=== PATIENT | female | born 1950 | race Caucasian/White ===

== ENCOUNTER → 2016-04-26 | Outpatient (CLI) | payer OTHER ==
--- NOTE | 2016-04-26 13:17 | MA ---
Screening Digital Mammogram With iCAD Analysis Clinical Indications: Routine screening. The patient has had right breast cancer treated with lumpect august. Her mother was diagnosed with breast cancer in her 80s. Technique: Standard cephalocaudal and mediolateral oblique projections were obtained. This examinatio n was processed by the iCAD computer-aided detection system. Comparison: March 2015, March 2014, May 2013, March 2013, March 2012, March 2011, Buddy2010, February 2009. Breast Density: Type B; Scattered fibroglandular densities. Findings: CAD was reviewed. Asymmetry at the right breast lumpectomy site is stable. No masses, susp icious calcifications, or other signs of malignancy are identified. There has been no significant ch jamel in the appearance of either breast. Impression: Benign post lumpectomy mammography, BI-RADS 2. Recommendation: Routine mammographic screening in one year as long as physical examination is negativ [facility] will send a result letter to the patient. Negative mammography should not preclude additional workup of a clinically suspicious finding. The patient's information is entered into a reminder system with a target due date for her next mammo gram.
== END ==
LOC: BMCIMAGING 09:22
DX: Z12.31 Encounter for screening mammogram for malignant neoplasm of breast (principal); Z85.3 Personal history of malignant neoplasm of breast; Z80.3 Family history of malignant neoplasm of breast
CPT/HCPCS: G0202

== ENCOUNTER → 2017-04-28 | Outpatient (CLI) | payer OTHER, BC | LOC: BMCIMAGING 13:23 | PROVIDERS: ATTEND Physician Assistant Medical | DX: Z12.31 Encounter for screening mammogram for malignant neoplasm of breast (principal); Z85.3 Personal history of malignant neoplasm of breast ==

== ENCOUNTER → 2017-05-15 | Outpatient (CLI) | payer OTHER | LOC: FIMAGING 08:51 | PROVIDERS: ATTEND Physician Assistant Medical | DX: Z13.820 Encounter for screening for osteoporosis (principal); Z85.3 Personal history of malignant neoplasm of breast ==

== ENCOUNTER → 2018-05-13 | Outpatient (CLI) | payer OTHER | LOC: BMCIMAGING 14:19 | PROVIDERS: ATTEND Internal Medicine Hematology & Oncology | DX: Z12.31 Encounter for screening mammogram for malignant neoplasm of breast (principal); Z80.3 Family history of malignant neoplasm of breast ==

== ENCOUNTER 2018-08-23 21:34 | Observation (INO) | payer OTHER ==
--- NOTE | 2018-08-23 22:08 | EDPHY ---
H & P Stated Complaint: R arm enlarged, warm to touch, hx lymphedmea x2 yrs ago Time Seen by Provider: 08/23/18 22:07 HPI/ROS: HPI CHIEF COMPLAINT: Right upper extremity swelling, redness, warmth. HISTORY OF PRESENT ILLNESS: Patient very pleasant 68-year-old female she has a history of breast cancer, she status post lumpectomy on the right side, additionally cezar dissection, she has chronic right upper extremity lymphedema. She presents emergency room tonight right upper extremity increasing pain swelling and redness. She notices around 830 tonight. Was rather sudden onset. She realized that her arm was more swollen than normal and warm. She denies any trauma. She does report that she was gardening today , but does not remember any injury to her right arm. Past Medical History: Significant medical history for breast cancer. Past Surgical History: Lumpectomy. Cezar dissection. Social History: Denies drugs alcohol tobacco. Family History: Noncontributory ROS REVIEW OF SYSTEMS: 10 Systems were reviewed and negative with the exception of the elements mentioned in the history of present illness. Exam Constitutional triage nursing summary reviewed, vital signs reviewed, awake/ alert. Eyes normal conjunctivae and sclera, EOMI, PERRLA. HENT normal inspection, atraumatic, moist mucus membranes, no epistaxis, neck supple/ no meningismus, no raccoon eyes. Respiratory clear to auscultation bilaterally, normal breath sounds, no respiratory distress, no wheezing. Cardiovascular rate normal, regular rhythm, no murmur, no edema, distal pulses normal. Gastrointestinal soft, non-tender, no rebound, no guarding, normal bowel sounds, no distension, no pulsatile mass. Genitourinary no CVA tenderness. Musculoskeletal right upper extremity edematous, red, warm, and mildly tender palpation throughout. No focal area of cellulitis but the arm is red. no midline vertebral tenderness, full range of motion, no calf swelling, no tenderness of extremities, no meningismus, good pulses, neurovascularly intact. Skin pink, warm, & dry, no rash, skin atraumatic. Neurologic awake, alert and oriented x 3, AAOx3, moves all 4 extremities equally, motor intact, sensory intact, CN II-XII intact, normal cerebellar, normal vision, normal speech. Psychiatric normal mood/affect. Heme/Lymph/Immune no lymphadenopathy. Differential Diagnosis: Includes but is not limited to in a particular order cellulitis, acute on chronic lymphedema, DVT. Medical Decision Making: Plan for this patient IV establishment blood cultures , basic labs, inflammatory markers, Doppler ultrasound right upper extremity. Re-evaluate. Re-evaluation: Ultrasound right upper extremity shows no evidence of DVT. Called to me by Dr. Rogers. Plan for admission for right upper extremity cellulitis. Patient be admitted for right upper extremity cellulitis. Patient agrees for admission I have consult the hospitalist service Dr. Norman Agrees to admit. Source: Patient - Personal History Current Tetanus Diphtheria and Acellular Pertussis (TDAP): Yes - Medical/Surgical History Hx Asthma: No Hx Chronic Respiratory Disease: No Hx Diabetes: No Hx Cardiac Disease: No Hx Renal Disease: No Hx Cirrhosis: No Hx Alcoholism: No Hx HIV/AIDS: No Hx Splenectomy or Spleen Trauma: No Other PMH: Breast Ca w/lymphedema - Social History Smoking Status: Never smoked Constitutional: Initial Vital Signs Temperature (C) 36.9 C 08/23/18 21:38 Heart Rate 92 08/23/18 21:38 Respiratory Rate 17 08/23/18 21:38 Blood Pressure 134/77 H 08/23/18 21:38 O2 Sat (%) 97 08/23/18 21:38 O2 Delivery Mode Room Air Allergies/Adverse Reactions: No Known Allergies Allergy (Unverified 08/23/18 21:41) Home Medications: Medication Instructions Recorded Anastrozole [Arimidex 1 mg (*)] 1 mg PO HS 08/24/18 Aspirin EC [Aspirin EC 81 mg (*)] 81 mg PO DAILY 08/24/18 Calcium Carb W/Vit D [Calcium Carb 500 mg PO DAILY 08/24/18 W/Vit D 500/200 (*)] Ergocalciferol [Vitamin D2 (*)] 50,000 unit PO ISAAC@09 08/24/18 Multivitamins [Multivitamin (*)] 1 each PO DAILY 08/24/18 Simvastatin 10 mg PO HS 08/24/18 Medical Decision Making - Data Points Laboratory Results: Laboratory Results 08/23/18 22:47 08/23/18 22:47 Medications Given: Acetaminophen (Tylenol) 650 mg PO Q4HRS PRN PRN Reason: Pain, Mild/Fever, Can Take PO Stop: 02/20/19 02:12 Last Admin: 05/27/19 05:21 Dose: 650 mg Anastrozole (Arimidex) 1 mg PO HS [facility] Stop: 02/20/19 20:59 Last Admin: 08/24/18 21:36 Dose: 1 mg Enoxaparin Sodium (Lovenox) 40 mg SC DAILY [facility] Stop: 02/20/19 08:59 Last Admin: 08/24/18 08:27 Dose: 40 mg Cefazolin Sodium/Dextrose (Ancef 1 Gm (Premix)) 50 mls @ 200 mls/hr IV Q8HRS GERARDO PRN Reason: Protocol Stop: 09/23/18 07:59 Last Admin: 08/25/18 05:31 Dose: 50 mls Miscellaneous Medication (Non-Formulary) 1 ea PO HS [facility] Stop: 02/20/19 20:59 Last Admin: 08/24/18 21:36 Dose: 1 tab Discontinued Medications Cefazolin Sodium/Dextrose (Ancef) 100 mls @ 200 mls/hr IV EDNOW ONE PRN Reason: Protocol Stop: 08/23/18 23:30 Last Admin: 08/23/18 23:15 Dose: 100 mls Departure - Departure Disposition: [facility] Acute Clinical Impression: Cellulitis Qualifiers: Site of cellulitis: other site Qualified Code(s): L03.818 - Cellulitis of other sites Condition: Fair
[2018-08-23 23:00] LABS: PLATELET COUNT 274 10^3/uL (150-400)
[2018-08-23] MEDS ORDERED: ceFAZolin 2 GM/DEXTROSE 100 ML IV ONE (23:01)
[2018-08-24] MEDS ORDERED: ACETAMINOPHEN 325 MG TAB PO PRN (02:13)
[2018-08-24] MEDS ORDERED: HYDROCODONE/APAP 5/325 TAB PO PRN (02:13)
[2018-08-24] MEDS ORDERED: ONDANSETRON DISINTEGRATING 4 MG TAB PO PRN (02:13)
[2018-08-24] MEDS ORDERED: ONDANSETRON 4 MG/2 ML VIAL IVP PRN (02:13)
[2018-08-24] MEDS ORDERED: LORazepam 0.5 MG TAB PO PRN (02:13)
[2018-08-24 05:35] LABS: PLATELET COUNT 272 10^3/uL (150-400)
--- NOTE | 2018-08-24 08:21 | PDGENHP ---
History and Physical - Chief Complaint right arm swelling, redness, lymphedema - History of Present Illness Source - patient provides history appears reliable. EMR was reviewed and case discussed with ED provider. HPI - this a very pleasant 68-year-old female with past medical history significant for breast cancer in remission status post lumpectomy with lymph node dissection, chemotherapy presents emergency department this morning with complaints of increasing warm swelling and tightness in her right arm. Patient has a history of lymphedema in her right arm. She reports that she was gardening earlier in the day. She denies any known trauma or injury or skin puncture. Patient reports that she was hameed getting ready for bed and noticed that she felt like her right arm was feeling very tight. She has no significant increase in pain. She also noticed that the right arm was quite warm particularly under the covers. Patient denies any numbness or tingling. No fevers or chills. She otherwise has been feeling well. Patient is a remote history of cellulitis in this right upper extremity. History Information - Allergies/Home Medication List Allergies/Adverse Reactions: No Known Allergies Allergy (Unverified 08/23/18 21:41) Home Medications: Anastrozole [Arimidex 1 mg (*)] 1 mg PO DAILY 08/24/18 [Last Taken Unknown] Simvastatin 10 mg PO HS 08/24/18 [Last Taken Unknown] I have personally reviewed and updated: family history, medical history, social history, surgical history - Past Medical History Additional medical history: Breast cancer status post lumpectomy, lymph node dissection and chemotherapy. HLD - Surgical History Additional surgical history: Right breast lumpectomy and lymph node dissection. skin cancer removed (squamous cell) - Social History Smoking Status: Never smoked Alcohol Use: Occasionally (3 times weekly 1 glass wine) Drug Use: None Additional social history: Patient is lives with her . Cor status-full. Patient is not on life support to extend past 1 week. Review of Systems Review of Systems: ROS: 10pt was reviewed & negative except for what was stated in HPI & below Constitutional: Denies: chills, fever Physical Exam Physical Exam: Selected Entries 08/23/18 21:38 Blood Pressure Automatic Method Heart Rate 92 Respiratory 17 Rate O2 Sat (%) 97 Temperature (C) 36.9 C Blood Pressure 134/77 H Mean Arterial 96 Pressure (MAP) O2 Delivery Room Air Mode Temperature Axillary Source Temp Pulse Resp BP Pulse Ox 36.8 C 73 16 112/82 H 97 08/24/18 04:00 08/24/18 04:00 08/24/18 04:00 08/24/18 04:00 08/24/18 04:00 Constitutional: no apparent distress, other (NAD. Pleasant adult female is sitting up in bed. Patient good spirits.) Eyes: PERRL, anicteric sclera, EOMI, No scleral injection Ears, Nose, Mouth, Throat: moist mucous membranes, other (No nasal discharge.), No poor dentition Cardiovascular: regular rate and rhythym, no murmur, rub, or gallop, pulses symmetric bilaterally, No edema Peripheral Pulses: 2+: dorsalis-pedis (R), dorsalis-pedis (L) Respiratory: no respiratory distress, no rales or rhonchi, clear to auscultation Gastrointestinal: normoactive bowel sounds, soft, non-tender abdomen, No distension Skin: warm, no fluctuance, erythema (Left forearm and upper arm with increased warmth. Erythema extending from proximal wrist up to the proximal upper arm. Faint erythema is receding from the initial jose line. Patient still has increased warmth) Musculoskeletal: full muscle strength Neurologic: AAOx3, sensation intact bilaterally, other (Grossly nonfocal.), No facial droop Psychiatric: interacting appropriately, not anxious, not encephalopathic, thought process linear Lymph, Heme, Immunologic: No lymphangitic streaking Lab Data & Imaging Review 08/24/18 04:25 08/24/18 04:25 WBC 13.05 10^3/uL (3.80-9.50) H 08/24/18 04:25 RBC 4.45 10^6/uL (4.18-5.33) 08/24/18 04:25 Hgb 14.3 g/dL (12.6-16.3) 08/24/18 04:25 Hct 43.0 % (38.0-47.0) 08/24/18 04:25 MCV 96.6 fL (81.5-99.8) 08/24/18 04:25 MCH 32.1 pg (27.9-34.1) 08/24/18 04:25 MCHC 33.3 g/dL (32.4-36.7) 08/24/18 04:25 RDW 13.0 % (11.5-15.2) 08/24/18 04:25 Plt Count 272 10^3/uL (150-400) 08/24/18 04:25 MPV 10.7 fL (8.7-11.7) 08/24/18 04:25 Neut % (Auto) 88.9 % (39.3-74.2) H 08/24/18 04:25 Lymph % (Auto) 6.4 % (15.0-45.0) L 08/24/18 04:25 Dade % (Auto) 3.8 % (4.5-13.0) L 08/24/18 04:25 Eos % (Auto) 0.1 % (0.6-7.6) L 08/24/18 04:25 Baso % (Auto) 0.3 % (0.3-1.7) 08/24/18 04:25 Nucleat RBC Rel Count 0.0 % (0.0-0.2) 08/24/18 04:25 Absolute Neuts (auto) 11.59 10^3/uL (1.70-6.50) H 08/24/18 04:25 Absolute Lymphs (auto) 0.84 10^3/uL (1.00-3.00) L 08/24/18 04:25 Absolute Monos (auto) 0.50 10^3/uL (0.30-0.80) 08/24/18 04:25 Absolute Eos (auto) 0.01 10^3/uL (0.03-0.40) L 08/24/18 04:25 Absolute Basos (auto) 0.04 10^3/uL (0.02-0.10) 08/24/18 04:25 Absolute Nucleated RBC 0.00 10^3/uL (0-0.01) 08/24/18 04:25 Immature Gran % 0.5 % (0.0-1.1) 08/24/18 04:25 Immature Gran # 0.07 10^3/uL (0.00-0.10) 08/24/18 04:25 ESR 7 MM/HR (0-30) 08/23/18 22:47 VBG Lactic Acid 1.4 mmol/L (0.7-2.1) 08/23/18 22:47 Sodium 136 mEq/L (135-145) 08/24/18 04:25 Potassium 3.9 mEq/L (3.5-5.2) 08/24/18 04:25 Chloride 102 mEq/L (97-110) 08/24/18 04:25 Carbon Dioxide 23 mEq/l (22-31) 08/24/18 04:25 Anion Gap 11 mEq/L (6-14) 08/24/18 04:25 BUN 18 mg/dL (7-23) 08/24/18 04:25 Creatinine 0.6 mg/dL (0.6-1.0) 08/24/18 04:25 Estimated GFR > 60 08/24/18 04:25 Glucose 118 mg/dL (70-100) H 08/24/18 04:25 Calcium 9.4 mg/dL (8.5-10.4) 08/24/18 04:25 C-Reactive Protein 14.2 mg/L (<10.0) H 08/23/18 22:47 Imaging Review: Right Upper Extremity Venous Ultrasound History: Right arm pain and swelling. Technique: The right upper extremity venous system as well as right neck veins were interrogated with grayscale, color, and spectral Duplex Doppler imaging. Venous ultrasound demonstrates normal appearance of the internal jugular vein and subclavian vein with normal color-flow Doppler pattern. The axillary, basilic, brachial, radial , and ulnar veins are normal in appearance without intraluminal thrombus with normal compression and normal color- flow Doppler appearance. The cephalic vein is also normal in appearance. Impression: No evidence of intraluminal thrombus venous system right upper extremity. Findings discussed with Dontae Ngo MD at 22:50 hour, 08/23/2018. Dictated By: Richard Rogers MD Assessment & Plan Assessment: this a very pleasant 68-year-old female with past medical history significant for breast cancer in remission status post lumpectomy with lymph node dissection , chemotherapy presents emergency department this morning with complaints of increasing warm swelling and tightness in her right arm. #Cellulitis right upper extremity - no evidence of injury or abrasion. continue iv ancef given aggressiveness/progression of cellulitis. pt showing improvement in cellulitis. #Right arm lymphedema - hold on compression wraps until cellulitis resolved. discussed with patient recommendations. #History of breast cancer - continue Arimidex #HLD - resume statin. offerred formulary but patient will see if can bring from home. FEN - SLIV. Electrolyte are adequate. Regular diet as tolerated. PPX-SCDs. Hold anticoagulation anticipating short hospital stay. Encourage mobilization. Cor status-full. Life support not to extend past 1 week. Patient reports she has advanced directives recent change in well will have her bring copy. Disposition-patient admitted observation status on the [facility] floor for continued need of IV antibiotics. Patient showing improvement in cellulitis and hopefully can be discharged tomorrow on oral antibiotics.
[2018-08-24] MEDS: ENOXAPARIN 40 MG/0.4 ML SYR SC SCH (08:27)
--- NOTE | 2018-08-24 10:27 | ASMTCMCOM ---
CM Note CM Note Notes: Reviewed chart, pt admitted for arm swelling. She has a hx of breast ca and lymphedema. Pt will transition to po abx and likely dc home with support of . CM available for any changes. DC Plan: Independent Date Signed: 08/24/2018 10:26 AM Electronically Signed By:Elvira Garner RN
--- NOTE | 2018-08-24 13:14 | HOSPPROG ---
Hospitalist Progress Note Assessment/Plan: 68-year-old female with past medical history significant for breast cancer in remission status post lumpectomy with lymph node dissection, chemotherapy presents emergency department this morning with complaints of increasing warm swelling and tightness in her right arm. #Cellulitis right upper extremity -no evidence of injury or abrasion. continue iv ancef given aggressiveness/progression of cellulitis. #Right arm lymphedema - hold on compression wraps until cellulitis resolved. #History of breast cancer - continue Arimidex #HLD - resume statin. FEN - SLIV. Electrolyte are adequate. Regular diet as tolerated. PPX-SCDs. Hold anticoagulation anticipating short hospital stay. Encourage mobilization. Cor status-full. Life support not to extend past 1 week. Patient reports she has advanced directives recent change in well will have her bring copy. Disposition- patient admitted observation status needs IV antibiotics Patient showing improvement in cellulitis hopefully can be discharged tomorrow on oral antibiotics. Subjective: Feeling better. Arm still red and swollen. Objective: Vital Signs Temp Pulse Resp BP Pulse Ox 36.9 C 72 16 119/69 95 08/24/18 11:11 08/24/18 11:11 08/24/18 11:11 08/24/18 11:11 08/24/18 11:11 Laboratory Results 08/24/18 04:25 08/24/18 04:25 08/23/18 08/24/18 08/25/18 05:59 05:59 05:59 Intake Total 160 Output Total 350 Balance 160 -350 - Physical Exam Constitutional: no apparent distress, appears nourished Eyes: PERRL, anicteric sclera Ears, Nose, Mouth, Throat: moist mucous membranes, hearing normal Cardiovascular: regular rate and rhythym, No JVD Respiratory: no respiratory distress, no rales or rhonchi Gastrointestinal: No tenderness, No ascites Skin: warm, erythema Musculoskeletal: no muscle tenderness, generalized weakness Neurologic: AAOx3 Psychiatric: interacting appropriately, not anxious ICD10 Worksheet Patient Problems: Problems Problem Status Onset Cellulitis Acute
[2018-08-24] MEDS: SIMVASTATIN 10 MG PO SCH (21:36)
[2018-08-24] MEDS: ANASTROZOLE 1 MG TAB PO SCH (21:36)
--- NOTE | 2018-08-25 08:26 | HOSPPROG ---
Hospitalist Progress Note Assessment/Plan: Patient is a 68-year-old female with a history of breast cancer in remission. She is status post lumpectomy and lymph node resection. She presented to the emergency room with complaints of increased warmth and swelling in her right arm. 1st encounter chart reviewed * right upper extremity cellulitis -Cefazolin -ultrasound shows no DVT * right arm lymphedema -chronic * history of breast cancer -on Arimidex * hyperlipidemia -statin *plan: will ask ID to get involved w her care. She will need close f/u in the OP setting. Subjective: Macario has no complaints, says she is feeling better since being admitted. Objective: Vital Signs Temp Pulse Resp BP Pulse Ox 36.6 C 76 18 113/81 H 94 08/25/18 07:25 08/25/18 07:25 08/25/18 07:25 08/25/18 07:25 08/25/18 07:25 Laboratory Results 08/24/18 04:25 08/24/18 04:25 08/24/18 08/25/18 08/26/18 05:59 05:59 05:59 Intake Total 160 Output Total 350 Balance 160 -350 - Physical Exam Constitutional: no apparent distress, appears nourished, not in pain Eyes: PERRL Ears, Nose, Mouth, Throat: hearing normal Cardiovascular: regular rate and rhythym Respiratory: no respiratory distress Skin: warm, other (right forearm and upper arm area w eythema, swelling) Musculoskeletal: full muscle strength Neurologic: AAOx3 Psychiatric: interacting appropriately ICD10 Worksheet Patient Problems: Problems Problem Status Onset Cellulitis Acute
[2018-08-25] MEDS: ENOXAPARIN 40 MG/0.4 ML SYR SC SCH (08:54)
[2018-08-25] MEDS: MULTIVITAMINS 1 EACH TAB PO SCH (08:56)
[2018-08-25] MEDS: CALCIUM CARB W/VIT D 500 MG TAB PO SCH (08:56)
[2018-08-25] MEDS: ASPIRIN EC 81 MG TAB PO SCH (08:56)
--- NOTE | 2018-08-25 18:26 | GCON ---
[f rep st] CONSULTATION DATE OF CONSULTATION: 08/25/2018 REFERRING PHYSICIAN: Geramine Beaver NP REASON FOR CONSULTATION: Recurrent right upper extremity cellulitis. HISTORY OF PRESENT ILLNESS: The patient is a 68-year-old female with a past medical history of breas t cancer, status post lumpectomy, lymph node dissection, radiation therapy and chemotherapy several y ears ago, I am asked to see in consultation for right upper extremity cellulitis. The patient has ly mphedema post lymph node dissection and experienced 1 previous episode of cellulitis approximately 2 years ago. This was successfully resolved with oral antibiotic therapy. The patient now notes that she had onset of right upper extremity edema, warmth and tenderness after spending the day gardening. She did not have associated fever or chills. She describes her arm as feeling tight. She does use a lymphedema sleeve both at nighttime and during daytime hours. Given the progressive right upper e xtremity symptoms, she was seen in the emergency department on 08/23/2018, with clinical findings of right upper extremity cellulitis. Upper extremity Doppler was performed and showed no evidence of DV T. She has not felt ill otherwise. She also was noted to have a mild leukocytosis at time of presen tation. Based on her clinical findings, she was started on cefazolin for recurrent right upper extre mity cellulitis in the setting of lymphedema. The patient feels like she has improved with less tigh tness and pain, but the erythema has not receded. Given the above findings, I am now asked to assist in her ongoing management. The patient does not recall any distinct injuries while gardening prior to onset of symptoms. She does wear gloves. PAST MEDICAL HISTORY: Breast cancer as outlined above, upper extremity cellulitis 2 years previously . PAST SURGICAL HISTORY: Lumpectomy and lymph node dissection. CURRENT MEDICATIONS: Cefazolin 1 g IV q.8 hours, Arimidex 1 mg p.o. q.h.s., aspirin 81 mg p.o. daily , calcium with vitamin D 500 mg p.o. daily, Lovenox 40 mg subcutaneous daily, vitamin D2 50,000 units p.o. weekly, multivitamin p.o. daily. ALLERGIES: No known drug allergies. SOCIAL HISTORY: Patient does not smoke. She drinks 1-2 glasses of wine daily. No unusual animal ex posure. She traveled to [facility] in June. FAMILY HISTORY: Breast cancer. REVIEW OF SYSTEMS: Outside that noted in the HPI, the remainder of a 10-system review is unremarkabl e. PHYSICAL EXAMINATION: VITAL SIGNS: Temperature 36.7, heart rate 70, respiratory rate 16, blood pres sure 122/79, oxygen saturation 93% on room air. GENERAL: The patient is well nourished, well develo ped, in no acute distress. She appears nontoxic. HEENT: There is no scleral icterus, conjunctival injection, or conjunctival petechiae. Oropharynx shows moist mucous membranes. No thrush present. Dentition in good repair. No nasal discharge or sinus tenderness. NECK: Supple without palpable ly mphadenopathy or thyromegaly. CHEST: Clear to auscultation bilaterally without adventitious sounds. Respiratory effort is normal. CARDIOVASCULAR: Regular rate and rhythm without murmurs, gallops, o r rubs. ABDOMEN: Soft, nontender and nondistended. There is no palpable organomegaly. Bowel sound s are present. MUSCULOSKELETAL: The right upper extremity shows erythema over the forearm extending to the upper arm, but not involving the hand, chest wall, or shoulder. Some of the areas are somewh at splotchy in quality. There is warmth with mild tenderness present. No bullae. No areas of crepi tus or fluctuance. LYMPHATICS: No cervical or supraclavicular nodes. No epitrochlear nodes in the right upper extremity. No lymphangitis in the right upper extremity. NEUROLOGIC: The patient is al ert and interacts appropriately with the examiner. Cranial nerves 2-12 are grossly intact. Sensatio n is grossly intact. Muscle tone and bulk are normal. SKIN: See musculoskeletal exam. No stigmata of endocarditis. Skin is warm and dry to touch. LABORATORY DATA: White blood cell count 13.1, hematocrit 43.0, platelets 272, neutrophils 89%. Seru m creatinine is 0.6, CRP 14.2. Blood cultures x2 sets are no growth to date. Ultrasound of the righ t upper extremity shows no evidence of DVT. IMPRESSION: Recurrent right upper extremity cellulitis with underlying lymphedema: Most likely, thi s will be due to beta-hemolytic streptococci, which is a common cause of cellulitis in the setting of lymphedema. MSSA would also be of consideration. No clinical findings to suggest MRSA. Given the underlying lymphedema and prior episode of cellulitis, she will continue to be at risk of recurrent e pisodes of cellulitis. I have discussed with her today option of having antibiotic therapy available at home for self-initiation of therapy with onset of symptoms versus consideration of suppressive an tibiotics if continues to experience recurrence. RECOMMENDATIONS: 1. Agree with cefazolin 1 g IV q.8 hours. 2. Elevate right upper extremity as feasible. 3. Continue discussions with patient of about self-initiation of therapy with onset of symptoms vers us suppressive antibiotics in the future with goal of preventing recurrent cellulitis. 4. Clinical findings, pathophysiology and plan of care reviewed with patient and today. /[id number]/MODL
[2018-08-25] MEDS: ANASTROZOLE 1 MG TAB PO SCH (21:03)
[2018-08-25] MEDS: SIMVASTATIN 10 MG PO SCH (21:03)
--- NOTE | 2018-08-26 10:00 | PCMIDPN ---
Assessment/Plan: Assessment/Plan: * Recurrent right upper extremity cellulitis with underlying lymphedema: Overall clinically improved but without full resolution of cellulitis. Will give dose of ceftriaxone today prior to discharge given long half-life with plans for patient to return to [address] [place] [address] for additional dose of ceftriaxone tomorrow. Will begin Augmentin 875 mg orally twice daily x5 days beginning on Friday. Have arranged for follow-up in my office on 09/03/2018. Side effects of Augmentin including potential for allergic reactions and diarrhea discussed with patient. 08/26/18 09:57 Subjective: Patient with less arm swelling and tenderness/warmth. Notes some pruritis over area of erythema. Objective: Vital Signs Temp Pulse Resp BP Pulse Ox 36.7 C 63 16 127/66 H 92 08/25/18 22:52 08/25/18 22:52 08/25/18 22:52 08/25/18 22:52 08/25/18 22:52 Laboratory Results 08/24/18 04:25 08/24/18 04:25 08/25/18 08/26/18 08/27/18 05:59 05:59 05:59 Output Total 350 Balance -350 ESR 7 MM/HR (0-30) 08/23/18 22:47 C-Reactive Protein 14.2 mg/L (<10.0) H 08/23/18 22:47 Cefazolin # 3 Blood cultures x2 no growth - Physical Exam General Appearance: alert, no apparent distress EENT: No scleral icterus Cardiac/Chest: regular rate, rhythm, No systolic murmur Extremities: inflammation (Significant decrease in edema of right upper extremity; faint erythema primarily on posterior aspect which is less intense; no bulla or fluctuant areas; mild associated warmth) Abdomen: non-tender, No distended ICD10 Worksheet Patient Problems: Problems Problem Status Onset Cellulitis Acute
[2018-08-26] MEDS: CALCIUM CARB W/VIT D 500 MG TAB PO SCH (10:14)
[2018-08-26] MEDS: ASPIRIN EC 81 MG TAB PO SCH (10:14)
[2018-08-26] MEDS: ENOXAPARIN 40 MG/0.4 ML SYR SC SCH (10:15)
[2018-08-26] MEDS: MULTIVITAMINS 1 EACH TAB PO SCH (10:16)
--- NOTE | 2018-08-26 10:25 | HOSPPROG ---
Hospitalist Progress Note Assessment/Plan: Patient is a 68-year-old female with a history of breast cancer in remission. She is status post lumpectomy and lymph node resection. She presented to the emergency room with complaints of increased warmth and swelling in her right arm. Reviewed her care w Dr Ashford. * right upper extremity cellulitis -Cefazolin, much improved, getting a dose of Ceftiaxone prior to dc, then Augmentin bid x 5 days to start on Friday. will come here for a dose of IV abx tomorrow -ultrasound shows no DVT * right arm lymphedema -chronic * history of breast cancer -on Arimidex * hyperlipidemia -statin *plan: dc, f/u w Dr Ashford Subjective: Macario is feeling much improved today Objective: Vital Signs Temp Pulse Resp BP Pulse Ox 36.7 C 63 16 127/66 H 92 08/25/18 22:52 08/25/18 22:52 08/25/18 22:52 08/25/18 22:52 08/25/18 22:52 Laboratory Results 08/24/18 04:25 08/24/18 04:25 08/25/18 08/26/18 08/27/18 05:59 05:59 05:59 Output Total 350 Balance -350 - Physical Exam Constitutional: no apparent distress, appears nourished Eyes: PERRL Ears, Nose, Mouth, Throat: hearing normal Respiratory: no respiratory distress Skin: warm, other (right upper ext cellulitis much improved, less redness, less swelling, less warmth) Neurologic: AAOx3 Psychiatric: interacting appropriately ICD10 Worksheet Patient Problems: Problems Problem Status Onset Cellulitis Acute
--- NOTE | 2018-08-26 10:37 | ASMTDCNOTE ---
Case Management Discharge Discharge Order Complete? Answers: Yes Patient to Obtain Answers: via Family Medications Transportation Arranged Answers: Other Notes: OP Infusion Center Family Notified Answers: Yes Notes: pt called Discharge Comments Notes: CM spoke with pt in the room and scheduled her for an OP Infusion Center appointment here at [facility] for 10:30am tomorrow. Pt comfortable with plan to discharge independently and has support from her . No further CM needs noted at this time. Date Signed: 08/26/2018 10:36 AM Electronically Signed By:Carmita Caruso RN
--- NOTE | 2018-08-26 10:38 | ASMTLACE ---
[facility] Length of stay for Answers: 1 day current admission Acuity / Level of Answers: No Care: Did the patient have an inpatient admission? Comorbidities - select Answers: Other Notes: Breast ca all that apply # of Emergency department Answers: 1-2 visits in the last 6 months Score: 3 Date Signed: 08/26/2018 10:37 AM Electronically Signed By:Carmita Caruso RN
--- NOTE | 2018-08-26 10:52 | GDS ---
[f rep st] DISCHARGE SUMMARY DISCHARGE DIAGNOSES: 1. Right upper extremity cellulitis. 2. Right arm lymphedema. 3. History of breast cancer. 4. Hyperlipidemia. CONSULTATION: Dr. Edson Ashford. HISTORY OF PRESENT ILLNESS: Briefly, the patient is a 68-year-old female with a history of breast cancer in remission. She is status post lumpectomy and lymph node resection. She presented to the emergency room with complaints of increased warmth and swelling in her right arm. She has a history of this occurring in the past. She was seen and evaluated by Dr. Ashford. She was treated with cefazolin and will get a dose of ceftriaxone today and then one tomorrow. She will follow up with Dr. Ashford in the outpatient setting. HOSPITAL COURSE: 1. Right upper extremity cellulitis. Ultrasound shows no DVT. Will discharge on oral Augmentin. 2. Right arm lymphedema. This is chronic. She wears a support pressure wrap to this. 3. History of breast cancer, on Arimidex. 4. Hyperlipidemia. Statin therapy. DISCHARGE CONDITION: Stable. Blood pressure is 127/66, heart rate 63, respiratory rate 16, O2 sats on room air 92%, temperature 36.7 Celsius. MEDICATIONS AT DISCHARGE: Please see the EMR. DISCHARGE INSTRUCTIONS: 1. Follow up with Dr. Ashford on 09/03 at 11 a.m. 2. Come to [facility] for antibiotic infusion tomorrow and start oral antibiotics this Friday. 3. If she develops more than 3 liquidy stools a day, to contact Dr. Ashford. /[id number]/MODL MTDD
[2018-08-26 11:32] VITALS: BP 115/72
[2018-08-30] MEDS ORDERED: ERGOCALCIFEROL 50,000 I.UNIT CAP PO SCH (09:00)
== END 2018-08-26 11:43 | disposition home or self-care (01) ==
LOC: F3E 08-24 01:58
PROVIDERS: ADMIT Family Medicine; ATTEND Internal Medicine
DX: L03.113 Cellulitis of right upper limb (principal); I97.2 Postmastectomy lymphedema syndrome; Z85.3 Personal history of malignant neoplasm of breast; E78.5 Hyperlipidemia, unspecified; Z92.21 Personal history of antineoplastic chemotherapy; Z92.3 Personal history of irradiation
CPT/HCPCS: 93971; 96365; 96372; 96375; 96376; 99285; G0378; J0690; J0696; J1650